=== PATIENT | male | born 1985 | race African-American/Black ===

== ENCOUNTER 2017-06-17 16:23 | Inpatient (IN) | payer MEDICAID, OTHER ==
[~2017-06-17] VITALS: Ht 188 cm; Wt 100.0 kg
[~2017-06-17 16:23] MED LIST: [UNRECOGNIZED DRUG - REMARK]
[2017-06-17 17:40] LABS: BASOPHILS % (AUTO) 0.5 % (0.0-2.0); EOSINOPHILS % (AUTO) 0.2 % (1.0-6.0); HEMATOCRIT 39.1 % (41-53); HEMOGLOBIN 13.1 g/dL (13.5-17.5); LYMPHOCYTES # (AUTO) 1.5 K/uL (1.0-4.8); LYMPHOCYTES % (AUTO) 16.7 % (22.0-44.0); MEAN CORPUSCULAR HEMOGLOBIN 31.5 pg (26.0-34.0); MEAN CORPUSCULAR HGB CONC 33.4 G/dL (31.0-37.0); MEAN CORPUSCULAR VOLUME 94 fL (80-100); MONOCYTES # (AUTO) 0.7 K/uL (0.1-1.0); MONOCYTES % (AUTO) 8.1 % (2.0-9.0); NEUTROPHILS # (AUTO) 6.6 K/uL (1.8-7.7); NEUTROPHILS % (AUTO) 74.5 % (40.0-70.0); PLATELET COUNT (AUTO) 282 K/uL (150-450); RED BLOOD CELL COUNT(AUTO) 4.14 MIL/uL (4.50-5.90); RED CELL DISTRIBUTION WIDTH 14.3 % (11.5-14.5)
[2017-06-17 17:44] LABS: ANION GAP 7 mmol/L (8-16); CALCIUM, TOTAL 8.7 mg/dL (8.8-10.5); CARBON DIOXIDE 29 mmol/L (22-29); CHLORIDE 106 mmol/L (98-107); CREATININE 1.08 mg/dL (0.60-1.30); GLOMERULAR FILTR. RATE CALC > 60 mL/min (>60); GLUCOSE,RANDOM 89 mg/dL (70-110); POTASSIUM 3.8 mmol/L (3.5-5.1); SODIUM SERUM 142 mmol/L (136-145); UREA NITROGEN, BLOOD 20 mg/dL (7-18)
[2017-06-17 17:50] LABS: ALANINE AMINOTRANSFERASE 25 U/L (12-78); ALBUMIN 3.7 g/dL (3.4-5.0); ALKALINE PHOSPHATASE 55 U/L (46-116); ASPARTATE AMINOTRANSFERASE 19 U/L (15-37); BILIRUBIN,TOTAL 0.4 mg/dL (0.1-1.0); TOTAL PROTEIN, SERUM 7.2 g/dL (6.4-8.2)
[2017-06-17] MEDS ORDERED: HALOPERIDOL 5 MG TABLET PO ONE (18:15)
[2017-06-17] MEDS ORDERED: LORazepam 2 MG TABLET PO ONE (18:15)
[2017-06-17] MEDS ORDERED: LORazepam 2 MG/ML VIAL IM ONE (18:30)
[2017-06-17] MEDS ORDERED: HALOPERIDOL 5 MG TABLET PO PRN (18:30)
[2017-06-17] MEDS ORDERED: HALOPERIDOL LACTATE 5 MG/ML VIAL IM ONE (18:30)
[2017-06-17] MEDS ORDERED: DiphenhydrAMINE HCL 50 MG/ML VIAL IM ONE (18:30)
[2017-06-17] MEDS ORDERED: ZOLPIDEM TARTRATE 10 MG TABLET PO PRN (18:30)
[2017-06-17 20:42] VITALS: BP 106/66
[2017-06-17] MEDS ORDERED: INFLUENZA VIRUS VACCINE QVS 2017-18 (3YR+)/PF 60 MCG/0.5 ML SYRINGE IM ONE (20:45)
[2017-06-18 06:37] VITALS: BP 121/79
[2017-06-18 08:18] VITALS: BP 104/69
[2017-06-18 09:06] LABS: CHOL/HDL RATIO 2.1 (4.2-7.3)
[2017-06-18] MEDS ORDERED: MAG HYDROX/AL HYDROX/SIMETH ES 30 ML SUSPENSION UDCUP PO PRN (10:00)
[2017-06-18] MEDS ORDERED: PETROLATUM,WHITE 71 GM JELLY TP PRN (10:00)
[2017-06-18] MEDS ORDERED: ACETAMINOPHEN 325 MG TABLET PO PRN (10:00)
[2017-06-18] MEDS ORDERED: TraMADol HCL 50 MG TABLET PO PRN (10:00)
[2017-06-18] MEDS ORDERED: BACITRACIN 28.4 GM OINTMENT TP PRN (10:00)
[2017-06-18] MEDS ORDERED: LOPERAMIDE HCL 2 MG CAPSULE PO PRN (10:00)
[2017-06-18] MEDS ORDERED: BENZOCAINE/MENTHOL LOZENGE MM PRN (10:00)
[2017-06-18] MEDS ORDERED: CloNIDine HCL 0.1 MG TABLET PO PRN (10:00)
[2017-06-18] MEDS ORDERED: MAGNESIUM HYDROXIDE SUSPENSION 30 ML UDCUP PO PRN (10:00)
[2017-06-18] MEDS ORDERED: ONDANSETRON HCL 4 MG TABLET PO PRN (10:00)
[2017-06-18] MEDS ORDERED: ALBUTEROL SULFATE HFA 90 MCG/PUFF 8 GM INHALER IH PRN (10:00)
[2017-06-18 16:00] VITALS: BP 110/66
[2017-06-18] MEDS: HALOPERIDOL 5 MG TABLET PO SCH (17:00)
[2017-06-18] MEDS: BENZTROPINE MESYLATE 0.5 MG TABLET PO SCH (17:00)
[2017-06-19 06:33] VITALS: BP 108/65
[2017-06-19 08:17] VITALS: BP 114/71
[2017-06-19] MEDS: BENZTROPINE MESYLATE 0.5 MG TABLET PO SCH ×2 (08:26→16:56)
[2017-06-19] MEDS: HALOPERIDOL 5 MG TABLET PO SCH ×2 (08:27→16:56)
[2017-06-19 16:40] VITALS: BP 123/72
[2017-06-20] MEDS: FERROUS SULFATE 325 MG EC TABLET PO SCH ×2 (06:40→16:35)
[2017-06-20 07:03] VITALS: BP 108/66
[2017-06-20 08:49] VITALS: BP 112/60
[2017-06-20] MEDS: BENZTROPINE MESYLATE 0.5 MG TABLET PO SCH ×2 (10:10→16:35)
[2017-06-20] MEDS: HALOPERIDOL 5 MG TABLET PO SCH ×2 (10:10→16:35)
[2017-06-20 16:00] VITALS: BP 110/65
[2017-06-20] MEDS: LORazepam 2 MG TABLET PO PRN (17:35)
[2017-06-21] MEDS: FERROUS SULFATE 325 MG EC TABLET PO SCH ×2 (06:22→16:59)
[2017-06-21 06:39] VITALS: BP 113/75
[2017-06-21 08:25] VITALS: BP 120/76
[2017-06-21] MEDS: HALOPERIDOL 5 MG TABLET PO SCH ×2 (09:05→16:59)
[2017-06-21] MEDS: LORazepam 2 MG TABLET PO PRN (09:05)
[2017-06-21] MEDS: BENZTROPINE MESYLATE 0.5 MG TABLET PO SCH ×2 (09:05→16:59)
[2017-06-21 16:00] VITALS: BP 124/77
[2017-06-22] MEDS: FERROUS SULFATE 325 MG EC TABLET PO SCH ×2 (06:23→16:48)
[2017-06-22 06:29] VITALS: BP 110/72
[2017-06-22 08:27] VITALS: BP 116/70
[2017-06-22] MEDS: HALOPERIDOL 5 MG TABLET PO SCH ×2 (08:34→16:49)
[2017-06-22] MEDS: BENZTROPINE MESYLATE 0.5 MG TABLET PO SCH ×2 (08:34→16:48)
[2017-06-22 16:00] VITALS: BP 118/68
[2017-06-22] MEDS: LORazepam 2 MG TABLET PO PRN (16:49)
[2017-06-23 06:17] VITALS: BP 102/63
[2017-06-23] MEDS: FERROUS SULFATE 325 MG EC TABLET PO SCH (06:17)
[2017-06-23] MEDS: BENZTROPINE MESYLATE 0.5 MG TABLET PO SCH (08:50)
[2017-06-23] MEDS: HALOPERIDOL 5 MG TABLET PO SCH (08:50)
[2017-06-23] MEDS ORDERED: HALOPERIDOL DECANOATE 50 MG/ML VIAL IM SCH (09:00)
[2017-06-23 09:31] VITALS: BP 123/74
[2017-06-23] MEDS ORDERED: HALO50VI4 IM (12:04)
[2017-06-23] MEDS ORDERED: HALO5 PO (12:04)
[2017-06-23] MEDS ORDERED: BENZ0.5T6 PO (12:04)
== END 2017-06-23 15:40 | disposition home or self-care (01) | DRG 751 ==
LOC: EMS 16:24 → B3A 19:30
PROVIDERS: ADMIT Psychiatry & Neurology Child & Adolescent Psychiatry; ATTEND Psychiatry & Neurology Psychiatry
DX: F29 Unspecified psychosis not due to a substance or known physiological condition (principal); E83.51 Hypocalcemia; F22 Delusional disorders; D64.9 Anemia, unspecified; G47.00 Insomnia, unspecified; M25.561 Pain in right knee; F41.9 Anxiety disorder, unspecified; F12.90 Cannabis use, unspecified, uncomplicated; Z90.49 Acquired absence of other specified parts of digestive tract; Z79.82 Long term (current) use of aspirin; Z72.89 Other problems related to lifestyle; Z71.41 Alcohol abuse counseling and surveillance of alcoholic; Z71.51 Drug abuse counseling and surveillance of drug abuser; Z91.19 Patient's noncompliance with other medical treatment and regimen; Z91.5 Personal history of self-harm
CPT/HCPCS: 82306; 83036; 84443; 93005; 96372; 99285; G0480; J1200; J1630; J1631; J2060

== ENCOUNTER 2017-08-08 11:47 | Inpatient (IN) | payer MEDICAID, OTHER ==
[~2017-08-08] VITALS: Ht 193 cm; Wt 73.4 kg
[~2017-08-08 11:47] MED LIST changes: +BENZ0.5T6 PO; +HALO5 PO; +HALO50VI4 IM; -[UNRECOGNIZED DRUG - REMARK]
[2017-08-08 12:44] LABS: BASOPHILS # (AUTO) 0.03 K/uL (0.00-0.20); BASOPHILS % (AUTO) 0.3 % (0.0-2.0); EOSINOPHILS # (AUTO) 0.08 K/uL (0.00-0.70); EOSINOPHILS % (AUTO) 0.86 % (1.0-6.0); HEMATOCRIT 46.6 % (41-53); HEMOGLOBIN 15.2 g/dL (13.5-17.5); LYMPHOCYTES # (AUTO) 1.7 K/uL (1.0-4.8); LYMPHOCYTES % (AUTO) 18.1 % (22.0-44.0); MEAN CORPUSCULAR HEMOGLOBIN 30.8 pg (26.0-34.0); MEAN CORPUSCULAR HGB CONC 32.5 G/dL (31.0-37.0); MEAN CORPUSCULAR VOLUME 95 fL (80-100); MONOCYTES # (AUTO) 0.5 K/uL (0.1-1.0); MONOCYTES % (AUTO) 5.7 % (2.0-9.0); PLATELET COUNT (AUTO) 290 K/uL (150-450); RED BLOOD CELL COUNT(AUTO) 4.92 MIL/uL (4.50-5.90); RED CELL DISTRIBUTION WIDTH 14.6 % (11.5-14.5); WHITE BLOOD COUNT (AUTO) 9.4 K/uL (4.5-11.0)
[2017-08-08 12:54] LABS: ANION GAP 7 mmol/L (8-16); CALCIUM, TOTAL 9.1 mg/dL (8.8-10.5); CARBON DIOXIDE 30 mmol/L (22-29); CHLORIDE 103 mmol/L (98-107); CREATININE 1.23 mg/dL (0.60-1.30); GLOMERULAR FILTR. RATE CALC > 60 mL/min (>60); POTASSIUM 4.4 mmol/L (3.5-5.1); SODIUM SERUM 140 mmol/L (136-145); UREA NITROGEN, BLOOD 17 mg/dL (7-18)
[2017-08-08 12:59] LABS: ALANINE AMINOTRANSFERASE 28 U/L (12-78); ALBUMIN 3.8 g/dL (3.4-5.0); ASPARTATE AMINOTRANSFERASE 22 U/L (15-37); BILIRUBIN,TOTAL 0.4 mg/dL (0.1-1.0); TOTAL PROTEIN, SERUM 7.8 g/dL (6.4-8.2)
[2017-08-08] MEDS ORDERED: HALOPERIDOL LACTATE 5 MG/ML VIAL IM ONE (13:30)
[2017-08-08] MEDS ORDERED: LORazepam 2 MG/ML VIAL IM ONE (13:30)
[2017-08-08] MEDS ORDERED: DiphenhydrAMINE HCL 50 MG/ML VIAL IM ONE (13:30)
[2017-08-08] MEDS ORDERED: ZOLPIDEM TARTRATE 10 MG TABLET PO PRN (14:30)
[2017-08-08] MEDS ORDERED: LORazepam 2 MG TABLET PO PRN (14:30)
[2017-08-08] MEDS ORDERED: HALOPERIDOL 5 MG TABLET PO PRN (14:30)
[2017-08-08 16:10] VITALS: BP 125/74
[2017-08-08] MEDS ORDERED: CloNIDine HCL 0.1 MG TABLET PO PRN (17:45)
[2017-08-08] MEDS ORDERED: BACITRACIN 28.4 GM OINTMENT TP PRN (17:45)
[2017-08-08] MEDS ORDERED: ALBUTEROL SULFATE HFA 90 MCG/PUFF 8 GM INHALER IH PRN (17:45)
[2017-08-08] MEDS ORDERED: MAGNESIUM HYDROXIDE SUSPENSION 30 ML UDCUP PO PRN (17:45)
[2017-08-08] MEDS ORDERED: ONDANSETRON HCL 4 MG TABLET PO PRN (17:45)
[2017-08-08] MEDS ORDERED: LOPERAMIDE HCL 2 MG CAPSULE PO PRN (17:45)
[2017-08-08] MEDS ORDERED: PETROLATUM,WHITE 71 GM JELLY TP PRN (17:45)
[2017-08-08] MEDS ORDERED: BENZOCAINE/MENTHOL LOZENGE MM PRN (17:45)
[2017-08-08] MEDS ORDERED: ACETAMINOPHEN 325 MG TABLET PO PRN (17:45)
[2017-08-08] MEDS ORDERED: MAG HYDROX/AL HYDROX/SIMETH ES 30 ML SUSPENSION UDCUP PO PRN (17:45)
[2017-08-08] MEDS ORDERED: INFLUENZA VIRUS VACCINE QVS 2017-18 (3YR+)/PF 60 MCG/0.5 ML SYRINGE IM ONE (18:00)
[2017-08-09] MEDS: OMEPRAZOLE 20 MG CAPSULE PO SCH (08:16)
[2017-08-09] MEDS: DOCUSATE SODIUM 100 MG CAPSULE PO SCH (08:16)
[2017-08-09] MEDS: NICOTINE 21 MG/24 HOUR PATCH TD SCH (08:16)
[2017-08-09 08:51] VITALS: BP 129/75
[2017-08-09 09:08] LABS: MEAN CORPUSCULAR HEMOGLOBIN 31.5 pg (26.0-34.0); MEAN CORPUSCULAR HGB CONC 33.4 G/dL (31.0-37.0); MEAN CORPUSCULAR VOLUME 94 fL (80-100); PLATELET COUNT (AUTO) 286 K/uL (150-450); RED BLOOD CELL COUNT(AUTO) 4.45 MIL/uL (4.50-5.90); RED CELL DISTRIBUTION WIDTH 14.2 % (11.5-14.5); WHITE BLOOD COUNT (AUTO) 7.9 K/uL (4.5-11.0)
[2017-08-09 09:56] LABS: LYMPHOCYTES % (MANUAL) 31 % (22-44); RBC MORPHOLOGY COMMENT NORMAL RBC MORPH; TOTAL CELLS COUNTED 100
[2017-08-09 10:11] LABS: ANION GAP 5 mmol/L (8-16); CALCIUM, TOTAL 8.8 mg/dL (8.8-10.5); CARBON DIOXIDE 29 mmol/L (22-29); CHLORIDE 105 mmol/L (98-107); CHOL/HDL RATIO 2.3 (4.2-7.3); CREATININE 0.93 mg/dL (0.60-1.30); GLOMERULAR FILTR. RATE CALC > 60 mL/min (>60); PHOSPHORUS 3.7 mg/dL (2.5-4.9); POTASSIUM 3.9 mmol/L (3.5-5.1); SODIUM SERUM 139 mmol/L (136-145); THYROID STIMULATING HORMONE 0.54 uIU/mL (0.36-3.74); UREA NITROGEN, BLOOD 17 mg/dL (7-18)
[2017-08-09 16:16] VITALS: BP 120/70
[2017-08-09] MEDS: HALOPERIDOL 5 MG TABLET PO SCH (20:28)
[2017-08-10 06:42] VITALS: BP 129/85
[2017-08-10] MEDS: BENZTROPINE MESYLATE 1 MG TABLET PO SCH ×2 (09:00→17:00)
[2017-08-10] MEDS: OMEPRAZOLE 20 MG CAPSULE PO SCH (09:00)
[2017-08-10] MEDS: NICOTINE 21 MG/24 HOUR PATCH TD SCH (09:00)
[2017-08-10] MEDS: DOCUSATE SODIUM 100 MG CAPSULE PO SCH (09:00)
[2017-08-10 10:30] VITALS: BP 128/82
[2017-08-10] MEDS ORDERED: DSS100 PO (13:55)
[2017-08-10] MEDS ORDERED: OMEP20 PO (13:55)
[2017-08-10 16:29] VITALS: BP 137/75
[2017-08-10] MEDS: HALOPERIDOL 5 MG TABLET PO SCH (21:00)
[2017-08-11 05:11] VITALS: BP 131/74
[2017-08-11 08:00] VITALS: BP 118/70
[2017-08-11] MEDS: NICOTINE 21 MG/24 HOUR PATCH TD SCH (08:49)
[2017-08-11] MEDS: DOCUSATE SODIUM 100 MG CAPSULE PO SCH (08:57)
[2017-08-11] MEDS: BENZTROPINE MESYLATE 1 MG TABLET PO SCH (08:57)
[2017-08-11] MEDS: OMEPRAZOLE 20 MG CAPSULE PO SCH (08:57)
== END 2017-08-11 12:00 | disposition home or self-care (01) | DRG 750 ==
LOC: EMS 11:48 → B3A 14:51
PROVIDERS: ADMIT Psychiatry & Neurology Psychiatry; ATTEND Psychiatry & Neurology Psychiatry
DX: F20.0 Paranoid schizophrenia (principal); E55.9 Vitamin D deficiency, unspecified; G47.00 Insomnia, unspecified; F12.90 Cannabis use, unspecified, uncomplicated; F17.210 Nicotine dependence, cigarettes, uncomplicated; Z71.6 Tobacco abuse counseling; Z71.51 Drug abuse counseling and surveillance of drug abuser; Z88.6 Allergy status to analgesic agent; Z79.899 Other long term (current) drug therapy; Z28.21 Immunization not carried out because of patient refusal
CPT/HCPCS: 82306; 83735; 84100; 84443; 85007; 87081; 99285; G0480; J1200; J1630; J2060

== ENCOUNTER 2021-03-04 14:36 | Emergency (ER) | payer MEDICAID ==
[~2021-03-04] VITALS: Ht 193 cm; Wt 90.9 kg
[~2021-03-04 14:36] MED LIST changes: +BENZ0.5T44 PO; -BENZ0.5T6 PO; -HALO5 PO; -HALO50VI4 IM; +HALO5TAB2 PO
[2021-03-04] MEDS ORDERED: PERTUSS(ACELL),DIPH,TET VAC/PF 0.5 ML SYRINGE IM. ONE (15:00)
[2021-03-04] MEDS ORDERED: LIDOCAINE 1%/EPI 1:200,000/PF 30 ML VIAL PERC ONE (15:00)
[2021-03-04 16:24] VITALS: BP 143/87
[2021-03-04] MEDS ORDERED: BACITRACIN 0.9 GM PACKET OINTMENT TP ONE (16:30)
== END 2021-03-04 16:52 | disposition home or self-care (01) ==
LOC: EMS 14:39
DX: S51.811A Laceration without foreign body of right forearm, initial encounter (principal); F17.210 Nicotine dependence, cigarettes, uncomplicated; F12.90 Cannabis use, unspecified, uncomplicated; Z90.49 Acquired absence of other specified parts of digestive tract; Z88.6 Allergy status to analgesic agent; Z79.899 Other long term (current) drug therapy; W22.8XXA Striking against or struck by other objects, initial encounter; Y93.89 Activity, other specified; Y92.89 Other specified places as the place of occurrence of the external cause; Y99.8 Other external cause status
CPT/HCPCS: 12002; 73090; 99283; J3490

== ENCOUNTER 2024-02-22 14:46 | Emergency (ER) | payer MEDICAID ==
[~2024-02-22] VITALS: Ht 193 cm; Wt 100.0 kg
[~2024-02-22 14:46] MED LIST changes: -BENZ0.5T44 PO; +BENZ0.5T52 PO
[2024-02-22] MEDS: LIDOCAINE 1% 10 ML VIAL ID ONE (15:43)
[2024-02-22] MEDS: SODIUM CHLORIDE 0.9% 250 ML IRRIG SOLUTION BOTTLE IRRIG ONE (15:43)
[2024-02-22] MEDS: HYDROCODONE/ACETAMINOPHEN 5-325 MG TABLET PO ONE (15:43)
[2024-02-22] MEDS: CeFAZolin SODIUM 1 GM VIAL IM ONE (17:50)
[2024-02-22] MEDS: BACITRACIN 0.9 GM PACKET OINTMENT TP ONE (17:50)
[2024-02-22 18:11] VITALS: BP 119/56; PULSE 96; RESP 18; TEMP 98.2
[2024-02-22] MEDS ORDERED: CEPH-558 PO (18:24)
== END 2024-02-22 18:40 | disposition home or self-care (01) ==
LOC: EMS 14:48
DX: S60.552A Superficial foreign body of left hand, initial encounter (principal); S01.01XA Laceration without foreign body of scalp, initial encounter; F15.10 Other stimulant abuse, uncomplicated; F20.9 Schizophrenia, unspecified; F12.90 Cannabis use, unspecified, uncomplicated; Z90.49 Acquired absence of other specified parts of digestive tract; Z98.890 Other specified postprocedural states; Z88.6 Allergy status to analgesic agent; Y04.0XXA Assault by unarmed brawl or fight, initial encounter; Y93.89 Activity, other specified; Y92.89 Other specified places as the place of occurrence of the external cause; Y99.8 Other external cause status
CPT/HCPCS: 99285; 10120; 70450; 73080; 73090; 70486; 72125; 96372; J0690; J3490

== ENCOUNTER 2025-03-07 23:04 | Emergency (ER) | payer MEDICAID ==
[~2025-03-07] VITALS: Ht 188 cm; Wt 104.5 kg
[~2025-03-07 23:04] MED LIST changes: +CEPH-558 PO
[2025-03-07 23:23] VITALS: BP 122/87; PULSE 78; RESP 16; TEMP 98.1; O2SAT 100
== END 2025-03-08 03:07 | disposition left against medical advice (07) ==
LOC: EMS 23:50
DX: R22.0 Localized swelling, mass and lump, head (principal); Z53.21 Procedure and treatment not carried out due to patient leaving prior to being seen by health care provider